=== PATIENT | female | born 1975 | race Caucasian/White ===

== ENCOUNTER 2019-03-24 14:50 | Emergency (ER) | payer BC ==
[~2019-03-24] VITALS: Ht 157.5 cm; Wt 73.5 kg
[2019-03-24 15:02] VITALS: BP 137/85
[2019-03-24] MEDS ORDERED: WELLBUTRIN 75 M75 M1 PO (15:05)
[2019-03-24] MEDS ORDERED: ADIPEX-P37.5 MG PO (15:05)
[2019-03-24] MEDS ORDERED: KEFLEX500 M1 PO (15:11)
== END 2019-03-24 15:44 | disposition home or self-care (01) ==
LOC: M.ERS 14:50
DX: S61.012A Laceration without foreign body of left thumb without damage to nail, initial encounter (principal); F32.9 Major depressive disorder, single episode, unspecified; Z88.8 Allergy status to other drugs, medicaments and biological substances; W27.2XXA Contact with scissors, initial encounter; Y92.89 Other specified places as the place of occurrence of the external cause; Y93.89 Activity, other specified; Y99.8 Other external cause status